=== PATIENT | male | born 1960 ===

== ENCOUNTER 2016-12-08 13:31 | Emergency (ER) | payer OTHER ==
[2016-12-08 13:43] VITALS: PULSE 87; RESP 20; TEMP 98; O2SAT 99
--- NOTE | 2016-12-08 14:35 | C.PDOC ---
Time Seen by Provider: 12/08/16 14:16 Chief Complaint (Nursing): High Blood Pressure History Per: Patient Onset/Duration Of Symptoms: Days (about 1 month), Intermittent Episodes (in the mornings) Current Symptoms Are (Timing): Still Present Associated Symptoms: Headache, Other (Anxiety) Severity: Moderate Exacerbating Factor(s): Pos: None Additional History Per: Prior Records Past Medical History Reviewed: Historical Data, Nursing Documentation, Vital Signs Vital Signs: Last Vital Signs Temp 98 F 12/08/16 13:40 Pulse 87 12/08/16 13:40 Resp 20 12/08/16 13:40 BP 137/84 12/08/16 13:40 Pulse Ox 99 12/08/16 14:35 - Medical History PMH: Anxiety, Depression, Diabetes, HTN, Hypercholesterolemia - [facility] Procedures CLOSURE SKIN & SUBCUTANEOUS NEC (04/09/14) TETANUS TOXOID ADMINIST (04/09/14) Family History: States: [place] (Father at 58 due to [place]) - Social History Hx Tobacco Use: Yes Hx Alcohol Use: Yes Hx Substance Use: No (previous heroin user, stopped 8 yrs) - Immunization History Hx Tetanus Toxoid Vaccination: No Hx Influenza Vaccination: No Hx Pneumococcal Vaccination: No Review Of Systems Except As Marked, All Systems Reviewed And Found Negative. Constitutional: Negative for: Fever, Weakness Cardiovascular: Negative for: Chest Pain Respiratory: Negative for: Shortness of Breath Gastrointestinal: Negative for: Vomiting, Abdominal Pain Musculoskeletal: Negative for: Neck Pain Neurological: Negative for: Weakness, Numbness, Altered Mental Status Physical Exam - Physical Exam Appears: Non-toxic, No Acute Distress Skin: Normal Color, Warm, Dry Head: Atraumatic, Normacephalic Eye(s): bilateral: PERRL, EOMI Neck: Normal ROM, Supple Cardiovascular: Rhythm Regular Respiratory: Normal Breath Sounds, No Accessory Muscle Use Gastrointestinal/Abdominal: Soft, No Tenderness Extremity: Normal ROM, No Deformity Neurological/Psych: Oriented x3, Normal Speech, Normal Cognition, No Cerebellar Signs, Normal Motor, Normal Sensation ED Course And Treatment O2 Sat by Pulse Oximetry: 99 Pulse Ox Interpretation: Normal Medical Decision Making Medical Decision Making: Will increase Enalapril from 20mg daily to 20mg bid. Disposition Counseled Patient/Family Regarding: Diagnosis, Need For Followup, Rx Given, Smoking Cessation - Disposition Referrals: Elsa Handy MD [Medical Doctor] - Disposition: HOME/ ROUTINE Disposition Time: 14:49 Condition: IMPROVED Additional Instructions: Follow up with your doctor this week for further evaluation and treatment. Return to the ER if you develop worsening of symptoms or if you have any other concerns. Prescriptions: Enalapril Maleate [Vasotec] 20 mg PO BID #60 tab hydrOXYzine Pamoate [Vistaril] 25 mg PO Q6 PRN #30 cap PRN Reason: Anxiety Instructions: Hypertension (ED) - Clinical Impression Clinical Impression: Uncontrolled hypertension, Anxiety
[2016-12-08 15:04] VITALS: BP 108/73
== END 2016-12-08 15:04 | disposition home or self-care (01) ==
LOC: C.ER 13:31
DX: I10 Essential (primary) hypertension (principal); F41.9 Anxiety disorder, unspecified; Z72.0 Tobacco use

== ENCOUNTER 2018-08-15 15:17 | Outpatient (CLI) | payer MEDICARE, OTHER | END 2018-08-15 15:18 | disposition home or self-care (01) | LOC: C.RADH 15:17 ==

== ENCOUNTER → 2018-10-17 14:52 | Emergency (ER) | payer MEDICARE, OTHER | END | disposition left against medical advice (07) | LOC: C.ER 14:52 | DX: Z02.89 Encounter for other administrative examinations (principal); Z00.00 Encounter for general adult medical examination without abnormal findings ==

== ENCOUNTER 2018-10-18 14:53 | Observation (INO) | payer MEDICARE, OTHER ==
--- NOTE | 2018-10-18 16:09 | C.PDOC ---
History Of Present Illness 58 y/o male presents to the ED requesting detox from alcohol. Patient admits to drinking daily for the last 6 months. He reports drinking 5-6 beers daily with 5-6 shots of rum. His last drink was this morning around 10:00am. He denies any current symptoms. Patient reports a PMHx of hypertension. Time Seen by Provider: 10/18/18 15:10 Chief Complaint (Nursing): Substance Abuse History Per: Patient History/Exam Limitations: no limitations Onset/Duration Of Symptoms: Days Current Symptoms Are (Timing): Still Present Modifying Factor(s): Alcohol Associated Symptoms: denies: Suicidal Thoughts, Suicidal Plan Past Medical History Reviewed: Historical Data, Nursing Documentation, Vital Signs Vital Signs: Last Vital Signs Temp 98.2 F 10/18/18 15:05 Pulse 81 10/18/18 15:05 Resp 18 10/18/18 15:05 BP 144/80 10/18/18 15:05 Pulse Ox 95 10/18/18 15:05 - Medical History PMH: Anxiety, Depression, Diabetes, HTN, Hypercholesterolemia - [facility] Procedures CLOSURE SKIN & SUBCUTANEOUS NEC (04/09/14) TETANUS TOXOID ADMINIST (04/09/14) Family History: States: [place] (Father at 58 due to [place]) - Social History Hx Tobacco Use: Yes Hx Alcohol Use: Yes Hx Substance Use: No (previous heroin user, stopped 8 yrs) - Immunization History Hx Tetanus Toxoid Vaccination: No Hx Influenza Vaccination: No Hx Pneumococcal Vaccination: No Review Of Systems Constitutional: Negative for: Fever, Chills Cardiovascular: Negative for: Palpitations Respiratory: Negative for: Shortness of Breath Gastrointestinal: Negative for: Vomiting, Abdominal Pain Neurological: Negative for: Weakness, Dizziness Psych: Positive for: Other (ETOH abuse). Negative for: Suicidal ideation (or homicidal), Withdrawal Physical Exam - Physical Exam Appears: Non-toxic, No Acute Distress Skin: Warm, Dry Head: Atraumatic, Normacephalic Eye(s): bilateral: Normal Inspection, PERRL, EOMI Neck: Normal ROM Chest: Symmetrical Cardiovascular: Rhythm Regular, No Murmur Respiratory: Normal Breath Sounds, No Accessory Muscle Use Gastrointestinal/Abdominal: Soft, No Tenderness, No Distention, No Guarding Extremity: Bilateral: Atraumatic, Normal Color And Temperature Neurological/Psych: Oriented x3, Normal Speech ED Course And Treatment O2 Sat by Pulse Oximetry: 95 (RA) Pulse Ox Interpretation: Normal Progress Note: Labs ordered for medical clearance. Disposition - Disposition Forms: [employer] (Greenlandic) - Scribe Statement The provider has reviewed the documentation as recorded by the Mikeibchristal Krueger Provider Attestation: All medical record entries made by the Mikeibe were at my direction and personally dictated by me. I have reviewed the chart and agree that the record accurately reflects my personal performance of the history, physical exam, medical decision making, and the department course for this patient. I have also personally directed, reviewed, and agree with the discharge instructions and disposition.
[2018-10-18 17:59] LABS: BASO % 0.6 % (0.0-2.0); EOS # 0.2 K/uL (0.0-0.7); EOS % 2.7 % (0.0-4.0); HEMOGLOBIN 12.7 g/dL (12.0-18.0); LYMPH # 2.1 K/uL (1.0-4.3); LYMPH % 34.2 % (20.0-40.0); MEAN CELL VOLUME 91.8 fL (80.0-94.0); MEAN CORPUSCULAR HEMOGLOBIN 30.6 pg (27.0-31.0); MEAN CORPUSCULAR HGB CONC 33.4 g/dL (33.0-37.0); MEAN PLATELET VOLUME 7.8 fL (7.2-11.7); MONO # 0.8 K/uL (0.0-0.8); MONO % 12.7 % (0.0-10.0); NEUT % 49.8 % (50.0-75.0); RBC 4.15 Mil/uL (4.40-5.90); RED CELL DISTRIBUTION WIDTH 14.9 % (11.5-14.5); WHITE BLOOD COUNT 6.1 K/uL (4.8-10.8)
[2018-10-18 18:08] LABS: SQUAMOUS EPITHIAL < 1 /hpf (0-5); URINE BILIRUBIN NEGATIVE (NEGATIVE); URINE BLOOD NEGATIVE (NEGATIVE); URINE CLARITY Clear (Clear); URINE COLOR Yellow (YELLOW); URINE GLUCOSE (UA) NORMAL (Normal); URINE LEUKOCYTE ESTERASE 1+ Leu/uL (Negative); URINE PROTEIN NEGATIVE (NEGATIVE)
[2018-10-18 18:09] LABS: ALB/GLOB RATIO 1.2 (1.0-2.1); ALT/SGPT 98 U/L (21-72); AST/SGOT 132 U/L (17-59); BLOOD UREA NITROGEN 7 mg/dL (9-20); CALCIUM 8.8 mg/dl (8.6-10.4); GFR NON-AFRICAN AMERICAN > 60
[2018-10-18 18:16] LABS: BARBITURATES, UR NEGATIVE (NEGATIVE); BENZODIAZEPINES, UR NEGATIVE (NEGATIVE); OPIATES, UR NEGATIVE (NEGATIVE); PHENCYCLIDINE, UR NEGATIVE (NEGATIVE)
--- NOTE | 2018-10-18 19:21 | PCM.BM ---
<Mynor Remy - Last Filed: 10/18/18 19:19> Treatment Plan Problems - Problems identified on initial assessmt knowledge deficit:alcohol use Date Initiated: 10/18/18 Time Initiated: 19:19 Assessment reference: NA Status: Active anxiety related to substance use Date Initiated: 10/18/18 Time Initiated: 19:21 Assessment reference: NA Status: Active defensive coping Date Initiated: 10/18/18 Time Initiated: 19:21 Assessment reference: NA Status: Active Treatment assets and liabiliti Patient Assests: adapts well, cooperative, cognitively intact Patient Liabilities: substance abuse, medical problems - Milieu Protocol Maintain good personal hygiene: daily Encourage regular showers, daily Remind patient to perform daily oral care, daily Assist patient to perform ADL's Conduct patient checks and document Observation sheet: Q15 minutes Maintain personal safety: every shift Educate patient to report safety concerns to staff, every shift Monitor environment for contraband/sharps Medication safety: Monitor for expected outcome, potential side effects: every shift, Assess barriers to learning: every shift, Assess readiness for medication education: every shift <Emmie Busch - Last Filed: 10/20/18 08:50> - Diagnosis (1) Alcohol use disorder, severe, dependence Status: Acute Interventions: 10/19/18 18:50 * Assess 7x/week regarding severity of withdrawal * Educate regarding risks, benefits, side effects and alternatives of medications * Use Motivational Interviewing for abstinence * Use CBT for relapse prevention * Medication management for withdrawal symptoms * Encourage medication assisted treatment *
[2018-10-19] MEDS: Methadone 40 mg Tab PO SCH (10:12)
--- NOTE | 2018-10-19 15:23 | PCM.PSYCH ---
Initial Psychiatric Evaluation - Initial Psychiatric Evaluation Type of Admission: Voluntary Legal Status: Capacity Chief Complaint (in patient's own words): "Alcohol" History of Present Illness and Precipitating Events: The pt is seen, chart reviewed, case discussed He is a 58 y/o LM, , with 2 adult children, lives w , disabled due to anxity/depression He is here for alcohol detox. He admits to drinking 6 beers and 5 shots of liquor daily. He gets very anxious and sweaty when he doesn't, and he keeps drinking. Currently, he seems to be OK. No seizures or DTs. He has been drinking "all his life" and had 3 detoxes and 1 rehab in the past He also used to do heroin since age 18 and is now on 70 mg methadone at [facility]. Confirmed by our RN. He is in the process of lowering his dose bc of sedation. He uses cocaine and MJ too. Past psych hx: Dx'ed with depression and anxiety d/o. Takes Paxil 40 mg No jaida attempt Medical hx: HTN Family psych: None Current Medications: Active Medications Generic Name Dose Route Start Last Admin Trade Name Freq PRN Reason Stop Dose Admin Clonidine HCl 0.1 mg 10/19/18 15:21 Catapres PO Q4H PRN Symptoms of alcohol withdrawl Folic Acid 1 mg 10/19/18 15:30 Folic Acid PO DAILY WILFRED Methadone HCl 40 mg 10/19/18 10:00 10/19/18 10:12 Methadose PO 40 mg DAILY WILFRED Administration Methadone HCl 30 mg 10/19/18 10:00 10/19/18 10:13 Methadone PO 30 mg DAILY WILFRED Administration Multivitamins 1 tab 10/19/18 15:30 Hexavitamin PO DAILY WILFRED Thiamine HCl 100 mg 10/19/18 15:30 Vitamin B1 Tab PO DAILY WILFRED Trazodone HCl 50 mg 10/18/18 20:13 Desyrel PO HS PRN Insomnia Past Psychiatric History - Past Psychiatric History Previous Treatment History: Intensive Outpatient Pertinent Medical Hx (Current Medical&Sleep Prob, Allergies): Allergies Allergy/AdvReac Type Severity Reaction Status Date / Time No Known Allergies Allergy Verified 07/29/16 01:14 Methadone HCl 70 mg PO DAILY 12/13/15 Paroxetine HCl [Paxil Cr] 25 mg PO HS 12/13/15 Metoprolol Succinate XL [Toprol XL] 25 mg PO DAILY 07/29/16 Enalapril Maleate [Vasotec] 20 mg PO BID #60 tab 12/08/16 hydrOXYzine Pamoate [Vistaril] 25 mg PO Q6 PRN #30 cap 12/08/16 Omeprazole 40 mg PO DAILY 10/18/18 Review of Systems - Psychiatric Psychiatric: Abnormal Sleep Pattern, Anhedonia, Anxiety, Change in Appetite, Difficulty Concentrating. absent: Homicidal Ideation, Suicidal Ideation Mental Status Examination - Personal Presentation Personal Presentation: Looks stated age - Affect Affect: Constricted - Motor Activity Motor Activity: Calm - Reliability in Providing Information Reliability in Providing Information: Good - Speech Speech: Organized - Mood Mood: Depressed, Anxious - Formal Thought Process Formal Thought Process: No Impairment - Cognitive Functions Orientation: Person, Place, Situation, Time Sensorium: Alert Attention/Concentration: Attentive Estimate of Intelligence: Average Judgement: Intact, as evidence by: Insight regarding need for hospitalization Memory: Recent intact, as evidence by: Ability to recall events of the day, Remote intact, as evidenced by: Abilit to recall sig. life events - Risk Risk: Withdrawal, Diminished functioning - Strength & Assets Inventory Strength & Assets Inventory: Cooperative DSM 5 DX - DSM 5 DSM 5 Diagnosis: Alcohol use d/o -severe Depressive d/o - unspecified Opioid use d/o - severe, on maintenance - Recommended/Plan of Treatment Treatment Recommendations and Plan of Treatment: Taper with ativan when he starts to withdraw Continue methadone 70 mg Gabapentin for augmentation Topamax for cravings As needed medications All risks, benefits and alternatives of the meds discussed, and the pt agreed and understood. Attend groups and activities Supportive therapy and psychoeducation [place] for abstinence CBT for relapse prevention Encourage MAT Refer to rehab or IOP, and self-help groups Teach healthy lifestyle methods, i.e. diet, exercise, meditation Smoking cessation with [place] Nicotine patch if needed 34 min
[2018-10-19] MEDS ORDERED: Multiple Vitamins Tab PO SCH (15:30)
[2018-10-19] MEDS: Multiple Vitamins Tab PO SCH (16:35)
[2018-10-19] MEDS ORDERED: Aluminum Hydroxide/Magnesium Hydroxide Susp (30 mL) PO PRN (23:13)
--- NOTE | 2018-10-20 08:49 | PCM.PYCHDC ---
Mental Status Examination - Mental Status Examination Orientation: Person, Place, Situation, Time Memory: Intact Mood: Anxious Affect: Constricted Speech: Appropriate Attention: WNL Concentration: WNL Association: WNL Fund of Knowledge: WNL Formal Thought Process: No Impairment Suicidal Ideation: No Current Homicidal Ideation?: No Discharge Summary - Discharge Note Reason for Hospitalization: Alcohol detox Consultations:: List each consultation separately and include: 1. Reason for request. 2. Findings. 3. Follow-up Summary of Hospital Course include:: 1. Description of specific treatment plan utilized for patients during their course of treatmen. 2. Summarize the time- course for resolution of acute symptoms and/or regressed behaviors. 3. Describe issues identified and worked on during hospitalization. 4. Describe medication utilized. 5. Describe medical problems identified and treated. 6. Reassessment of suicide risk Summary of Hospital Course: On admission: The pt is seen, chart reviewed, case discussed He is a 58 y/o LM, , with 2 adult children, lives w , disabled due to anxity/depression He is here for alcohol detox. He admits to drinking 6 beers and 5 shots of liquor daily. He gets very anxious and sweaty when he doesn't, and he keeps drinking. Currently, he seems to be OK. No seizures or DTs. He has been drinking "all his life" and had 3 detoxes and 1 rehab in the past He also used to do heroin since age 18 and is now on 70 mg methadone at [facility]. Confirmed by our RN. He is in the process of lowering his dose bc of sedation. He uses cocaine and MJ too. Past psych hx: Dx'ed with depression and anxiety d/o. Takes Paxil 40 mg No jaida attempt Medical hx: HTN Family psych: None The pt was admitted and started on treatment with psychotherapy, support, psychoeducation and medications. MA and CBT used. The pt attended groups and activities, as well as milieu therapy. All the risks and benefits of medications are discussed and the patient understood and agreed. The pt improved with the treatments provided. After care discussed with the patient. He did not have significant wdw sxs and thus stayed in OBS status and got dc'ed today. He understood. He will go back to [facility] at [facility]. - Final Diagnosis (DSM 5) Condition upon Discharge: GOOD DSM 5: Alcohol use d/o -severe Depressive d/o - unspecified Opioid use d/o - severe, on maintenance Disposition: HOME/ ROUTINE Follow-up Treatment Plan: Continue below medications after discharge. Follow after care plan as discussed. Use relapse prevention skills Return to ER or call 911 if suicidal, homicidal or symptoms relapse. Stay away from stress, alcohol and drugs. See primary doctor regularly and get labs. Prescriptions/Medication Reconciliation: Gabapentin [Neurontin] 100 mg PO BID #60 cap Topiramate [Topamax] 25 mg PO BID #60 tab traZODone [Desyrel] 50 mg PO HS PRN #20 tab PRN Reason: Insomnia
[2018-10-20] MEDS: Multiple Vitamins Tab PO SCH (09:36)
[2018-10-20 09:37] VITALS: BP 125/76; PULSE 66; RESP 18; TEMP 97.6; O2SAT 98
[2018-10-20] MEDS: Methadone 40 mg Tab PO SCH (09:37)
== END 2018-10-20 11:40 | disposition home or self-care (01) ==
LOC: C.ER 14:53 → C.7D 19:05
DX: F10.20 Alcohol dependence, uncomplicated (principal); F11.20 Opioid dependence, uncomplicated; F14.90 Cocaine use, unspecified, uncomplicated; F32.9 Major depressive disorder, single episode, unspecified; I10 Essential (primary) hypertension; E11.9 Type 2 diabetes mellitus without complications; E78.00 Pure hypercholesterolemia, unspecified; F17.210 Nicotine dependence, cigarettes, uncomplicated
CPT/HCPCS: 80053; 81001; 85025; 99284; G0378; G0480

== ENCOUNTER 2018-10-20 11:43 | Emergency (ER) | payer MEDICARE, OTHER ==
[2018-10-20 11:53] VITALS: BMI 25.0
[2018-10-20 11:57] VITALS: BP 125/76; PULSE 81; RESP 18; TEMP 98.6; O2SAT 99
--- NOTE | 2018-10-20 12:25 | C.PDOC ---
History Of Present Illness 58-year-old male presents to the ED for suture removal from his nose. Patient states he was evaluated at [facility] [place] one week ago, had sutures placed, and was advised to return there for suture removal. Patient denies fever, chills, or discharge. Time Seen by Provider: 10/20/18 12:02 Chief Complaint (Nursing): Suture/Staple Removal History Per: Patient History/Exam Limitations: no limitations Onset/Duration Of Symptoms: Hrs Current Symptoms Are (Timing): Still Present Quality Of Symptoms: denies: Draining Additional History Per: Patient Past Medical History Reviewed: Historical Data, Nursing Documentation, Vital Signs Vital Signs: Last Vital Signs Temp 98.6 F 10/20/18 11:53 Pulse 81 10/20/18 11:53 Resp 18 10/20/18 11:53 BP 125/76 10/20/18 11:53 Pulse Ox 99 10/20/18 11:53 - Medical History PMH: Anxiety, Depression, Diabetes, HTN, Hypercholesterolemia Surgical History: No Surg Hx - [facility] Procedures CLOSURE SKIN & SUBCUTANEOUS NEC (04/09/14) TETANUS TOXOID ADMINIST (04/09/14) Family History: States: [place] (Father at 58 due to [place]) - Social History Hx Tobacco Use: Yes Hx Alcohol Use: Yes Hx Substance Use: Yes - Immunization History Hx Tetanus Toxoid Vaccination: No Hx Influenza Vaccination: No Hx Pneumococcal Vaccination: No Review Of Systems Constitutional: Negative for: Fever, Chills Skin: Positive for: Other (suture removal from nose). Negative for: Rash Neurological: Negative for: Headache Physical Exam - Physical Exam Appears: Well, Non-toxic, No Acute Distress Skin: Normal Color, Warm, Dry, Other (see nasal exam) Head: Atraumatic, Normacephalic Eye(s): bilateral: Normal Inspection Nose: No Epistaxis, No Deformity, No Tenderness, Other (healed, horizontal- oriented wound to nasal bridge. no visible sutures ) Oral Mucosa: Moist Throat: Normal Cardiovascular: Rhythm Regular Respiratory: Normal Breath Sounds, No Rales, No Rhonchi, No Wheezing Neurological/Psych: Oriented x3 ED Course And Treatment O2 Sat by Pulse Oximetry: 99 (on RA) Pulse Ox Interpretation: Normal Progress Note: Explained to patient that he has no visible sutures on wound. He was instructed to follow up with PMD/clinic in 1-2 days, and he understands he should return to ED if he has any concerning symptoms. Disposition Counseled Patient/Family Regarding: Diagnosis, Need For Followup - Disposition Referrals: [facility] [Outside] Disposition: HOME/ ROUTINE Disposition Time: 12:20 Condition: STABLE Instructions: Wound Care (DC) Forms: [employer] (Botswanan) Print Language: EGYPTIAN - Clinical Impression Clinical Impression: Visit for wound check - Scribe Statement The provider has reviewed the documentation as recorded by the Scribe (Emilia Rivera) Provider Attestation: All medical record entries made by the Scribe were at my direction and personally dictated by me. I have reviewed the chart and agree that the record accurately reflects my personal performance of the history, physical exam, medical decision making, and the department course for this patient. I have also personally directed, reviewed, and agree with the discharge instructions and disposition.
== END 2018-10-20 12:28 | disposition home or self-care (01) ==
LOC: C.ER 11:43
DX: Z48.00 Encounter for change or removal of nonsurgical wound dressing (principal)

== ENCOUNTER 2018-11-21 06:47 | Emergency (ER) | payer MEDICARE, OTHER ==
[2018-11-21 06:47] VITALS: BMI 25.0
[2018-11-21 06:53] VITALS: BP 160/71; O2SAT 97
--- NOTE | 2018-11-21 07:20 | C.PDOC ---
History Of Present Illness 58 yr old male w/ hx of Anxiety, Depression, Diabetes, HTN, Hypercholesterolemia, etoh abuse p/w anxiety. Pt notes anxiety since 3AM, took his paxil without relief. He notes that he was seen her previously for similiar occurence in the past and was dx with panic attack, was given a medication and felt better. He also notes a history of etoh use w/ hx of mild withdrawal and does not feel like he is going into withdrawal at this time. He denies any depression or si / hi. No hallucinations. No fall or trauma No headache, abdominal pain, nausea or vomiting No GI or complaints No back pain or chest pain No other complaints Time Seen by Provider: 11/21/18 07:20 Chief Complaint (Nursing): Anxiety Past Medical History Vital Signs: Last Vital Signs Temp 98.6 F 11/21/18 06:49 Pulse 88 11/21/18 06:49 Resp 18 11/21/18 06:49 BP 160/71 H 11/21/18 06:49 Pulse Ox 97 11/21/18 06:49 Primary Care Provider: Elsa Handy - Medical History PMH: Anxiety, Depression, Diabetes, HTN, Hypercholesterolemia Denies: Chronic Kidney Disease - [facility] Procedures CLOSURE SKIN & SUBCUTANEOUS NEC (04/09/14) TETANUS TOXOID ADMINIST (04/09/14) Family History: States: [place] (Father at 58 due to [place]) - Social History Hx Tobacco Use: Yes Hx Alcohol Use: Yes Hx Substance Use: Yes (METHADONE) - Immunization History Hx Tetanus Toxoid Vaccination: No Hx Influenza Vaccination: No Hx Pneumococcal Vaccination: No Review Of Systems Constitutional: Negative for: Fever, Chills, Weakness Eyes: Negative for: Pain, Vision Change ENT: Negative for: Ear Pain, Ear Discharge, Nose Congestion, Mouth Pain, Mouth Swelling Cardiovascular: Negative for: Chest Pain, Orthopnea Respiratory: Negative for: Cough, SOB with Excertion, Wheezing Gastrointestinal: Negative for: Nausea, Vomiting, Abdominal Pain, Diarrhea, Constipation, Melena, Hematochezia, Hematemesis Genitourinary: Negative for: Dysuria, Frequency, Hematuria Musculoskeletal: Negative for: Neck Pain, Back Pain Skin: Negative for: Rash, Lesions, Jaundice Neurological: Negative for: Weakness, Numbness, Confusion, Seizures, Headache Psych: Negative for: Anxiety, Psychosis Physical Exam - Physical Exam Appears: Well, Non-toxic, No Acute Distress Skin: Normal Color, Warm, Dry Head: Atraumatic, Normacephalic Eye(s): bilateral: Normal Inspection, PERRL, EOMI Nose: Normal Oral Mucosa: Moist Tongue: Normal Appearing Gingiva: Normal Appearing Throat: Normal, No Erythema, No Exudate Neck: Normal, Normal ROM, Supple, Other (no meningeal signs) Lymphatic: Normal Exam, No Adenopathy Chest: Symmetrical Cardiovascular: Rhythm Regular, No Friction Rub, No Murmur, No JVD Respiratory: Normal Breath Sounds, No Rales, No Rhonchi, No Stridor, No Wheezing, No Plerual Rub Gastrointestinal/Abdominal: Normal Exam, Soft, No Tenderness Back: Normal Inspection, No CVA Tenderness Extremity: Normal ROM, No Tenderness Extremity: Bilateral: Atraumatic Neurological/Psych: Oriented x3, Normal Speech, Normal Cognition Gait: Steady ED Course And Treatment - Laboratory Results Result Diagrams: 11/21/18 08:33 11/21/18 08:33 O2 Sat by Pulse Oximetry: 97 Medical Decision Making Medical Decision Makin yr old male w/ hx of Anxiety, Depression, Diabetes, HTN, Hypercholesterolemia and etoh abuse p/w anxiety. Mild withdrawal symptoms noted on exam with CIWA score of 5. Mildly tremulous hands but no tongue fasciluations. Will rx mild withdrawal with ativan, seek psych, labs and reass ess. Pt in NAD. EK, nsr, no stemi 0938 labs reviewed, mildly elevated LFTS: no abd pain per pt and nonttp on exam. Likely etoh associated given AST > ALT endorsed need to decrease EToh use pt in NAD, no signs of withdrawal at this time medically clear pending Crisis eval 1044 now signs of withdrawal on exam, steady stable gait endorsed to pt to d/c drug use clear by crisis: Dr. Deshaun leon for d/c home with return indications and f/u pt agreeable to plan. Disposition - Disposition Referrals: [facility] [Outside] [facility] [Outside] [facility] [Outside] Valentin Gallagher MD [Staff Provider] - Elsa Handy MD [Medical Doctor] - [facility] [place] [Outside] Disposition: HOME/ ROUTINE Disposition Time: 09:39 Condition: STABLE Additional Instructions: ARIANE QUINTERO, thank you for letting us take care of you today. Your provider was Hieu Persaud and you were treated for ANXIETY. The emergency medical care you received today was directed at your acute symptoms. If you were prescribed any medication, please fill it and take as directed. It may take several days for your symptoms to resolve. Return to the Emergency Department if your symptoms worsen, do not improve, or if you have any other problems. Please contact your doctor or call one of the physicians/clinics you have been referred to that are listed on the Patient Visit Information form that is included in your discharge packet. Bring any paperwork you were given at discharge with you along with any medications you are taking to your follow up visit. Our treatment cannot replace ongoing medical care by a primary care provider outside of the emergency department. Thank you for allowing the [facility] team to be part of your care today. If you had an X-Ray or CT scan: A Radiologist will review the ED reading if any change in treatment is needed we will contact you. If you had a blood, urine, or wound culture: It will take several days for the results, if any change in treatment is needed we will contact you. If you had an STI test: It will take 48 hours for the results. Please call after 1 week if you have not heard back. Instructions: Anxiety, Adult (DC) Forms: [employer] (Serbian) - Clinical Impression Clinical Impression: Anxiety, LFT elevation
[2018-11-21 08:51] LABS: BASO # 0.1 K/uL (0.0-0.2); BASO % 0.8 % (0.0-2.0); EOS % 0.5 % (0.0-4.0); HEMOGLOBIN 13.3 g/dL (12.0-18.0); LYMPH # 1.6 K/uL (1.0-4.3); LYMPH % 23.7 % (20.0-40.0); MEAN CELL VOLUME 92.6 fL (80.0-94.0); MEAN CORPUSCULAR HEMOGLOBIN 31.1 pg (27.0-31.0); MEAN CORPUSCULAR HGB CONC 33.6 g/dL (33.0-37.0); MEAN PLATELET VOLUME 8.3 fL (7.2-11.7); MONO # 0.9 K/uL (0.0-0.8); MONO % 13.3 % (0.0-10.0); NEUT # 4.2 K/uL (1.8-7.0); NEUT % 61.7 % (50.0-75.0); RBC 4.28 Mil/uL (4.40-5.90); WHITE BLOOD COUNT 6.7 K/uL (4.8-10.8)
[2018-11-21 09:05] LABS: ACETAMINOPHEN < 10.0 ug/mL (10.0-30.0); ALB/GLOB RATIO 1.1 (1.0-2.1); ALBUMIN 4.4 g/dL (3.5-5.0); ALT/SGPT 136 U/L (21-72); AST/SGOT 169 U/L (17-59); BLOOD UREA NITROGEN 9 mg/dL (9-20); CALCIUM 9.3 mg/dl (8.6-10.4); GFR NON-AFRICAN AMERICAN > 60; SALICYLATE < 1.0 {null, mg/dL 1}
[2018-11-21 09:09] LABS: URINE BILIRUBIN NEGATIVE (NEGATIVE); URINE BLOOD NEGATIVE (NEGATIVE); URINE CLARITY Clear (Clear); URINE COLOR Yellow (YELLOW); URINE GLUCOSE (UA) NORMAL (Normal); URINE LEUKOCYTE ESTERASE NEG Leu/uL (Negative); URINE PROTEIN NEGATIVE (NEGATIVE); URINE UROBILINOGEN NORMAL mg/dL (0.2-1.0)
[2018-11-21 10:00] LABS: BENZODIAZEPINES, UR NEGATIVE (NEGATIVE); OPIATES, UR NEGATIVE (NEGATIVE); PHENCYCLIDINE, UR NEGATIVE (NEGATIVE)
[2018-11-21 10:02] LABS: BARBITURATES, UR POSITIVE (NEGATIVE)
[2018-11-21 10:19] VITALS: PULSE 75; RESP 17; TEMP 98.2
--- NOTE | 2018-11-22 21:08 | CARD ---
APPROVED REPORT Date of service: 11/21/2018 EKG Measurement Heart [id number] <Conclusion> Normal sinus rhythm Normal ECG
== END 2018-11-21 11:08 | disposition home or self-care (01) ==
LOC: C.ER 06:47
DX: F41.9 Anxiety disorder, unspecified (principal); R79.89 Other specified abnormal findings of blood chemistry
CPT/HCPCS: 80053; 81001; 83735; 84100; 85025; 93005; 99284; G0480